=== PATIENT | female | born 1955 | race Caucasian/White ===

== ENCOUNTER 2016-07-22 10:06 | Inpatient (IN) | payer BC ==
[~2016-07-22 10:06] MED LIST: ACETAMINOPHEN 325 MG TAB PO ONE; CEFAZOLIN 2 GM/DEXTR 100 ML IV ONE; CHLORHEXIDINE GLUC HIBICLENS 118 ML BTL TP ONE; DEXAMETHASONE 4 MG/ML VIAL IVP ONE; FAMOTIDINE 20 MG TAB PO ONE; ROPI/epiNEPH/KETOROLAC JOINT COCKTAIL IU ONE; SKIN ADHESIVE (DERMABOND) 1 EACH TP ONE; TRANEXAMIC ACID 3,000 MG in NS 50 ML IRR ONE; TRANEXAMIC ACID 3,000 MG/50 ML BAG IRR ONE
[2016-07-22] MEDS ORDERED: DEXAMETHASONE 4 MG/ML VIAL ONE (10:25)
[2016-07-22] MEDS ORDERED: ACETAMINOPHEN 325 MG TAB ONE (10:25)
[2016-07-22] MEDS ORDERED: LIDOCAINE 1% 5 ML SDV ONE (10:25)
[2016-07-22] MEDS ORDERED: FAMOTIDINE 20 MG TAB ONE (10:25)
[2016-07-22] MEDS ORDERED: CEFAZOLIN 2 GM/DEXTROSE/100 ML BAG IV ONE (10:26)
[2016-07-22 11:15] LABS: % IMMATURE GRANULYOCYTES 0.2 % (0.0-1.1); ABSOLUTE IMMATURE GRANULOCYTES 0.01 10^3/uL (0.00-0.10); ADD DIFF? NO; ADD MORPH? NO; ADD SCAN? NO; ATYPICAL LYMPHOCYTE FLAG 0 (0-99); FRAGMENT RBC FLAG 0 (0-99); HEMATOCRIT 34.9 % (38.0-47.0); HEMOGLOBIN 11.5 g/dL (12.6-16.3); LEFT SHIFT FLG 0 (0-99); LIPEMIA HEMOLYSIS FLAG 80 (0-99); MEAN CELL HEMOGLOBIN 27.8 pg (27.9-34.1); MEAN CELL VOLUME 84.5 fL (81.5-99.8); MEAN PLATELET VOLUME 8.7 fL (8.7-11.7); PLATELET CLUMPS FLAG 0 (0-99); PLATELET COUNT 435 10^3/uL (150-400); RED BLOOD CELL COUNT 4.13 10^6/uL (4.18-5.33); RED CELL DISTRIBUTION WIDTH 13.9 % (11.5-15.2)
[2016-07-22] MEDS ORDERED: LIDOCAINE 1% 5 ML SDV ID PRN (11:15)
[2016-07-22] MEDS ORDERED: LR 1,000 ML IV ONE (11:15)
[2016-07-22] MEDS ORDERED: fentaNYL 100 MCG/2 ML INJ ONE (11:59)
[2016-07-22] MEDS ORDERED: MIDAZOLAM 2 MG/2 ML VIAL ONE (11:59)
[2016-07-22] MEDS ORDERED: PROPOFOL/EMULSION 500 MG/50 ML BOTTLE IV ONE ×2 (12:36→13:04)
--- NOTE | 2016-07-22 12:41 | POSTOPPROG ---
Addendum entered and electronically signed by Karla Boateng PA 07/22/16 12: 41: entered in mistake. wrong patient. Original Note: Post Op Note Date of Operation: 07/22/16 Surgeon: Karlene Boateng Waste Duster: karla boateng Anesthesiologist: dr. scott Anesthesia: Spinal, Other (Specify) (adductor canal block) Pre-op Diagnosis: left knee OA Post-op Diagnosis: same Indication: left knee pain due to OA that failed conservative measures Procedure: L medial partial knee arthroplasty Findings: severe medial knee OA Inf/Abcess present in the surg proc area at time of surgery?: No EBL: 50-100
[2016-07-22] MEDS ORDERED: diphenhydrAMINE 25 MG CAP PO PRN (12:50)
[2016-07-22] MEDS ORDERED: ONDANSETRON 4 MG/2 ML VIAL IVP PRN (12:50)
[2016-07-22] MEDS ORDERED: POLYETHYLENE GLYCOL 3350 17 GM PKT PO PRN (12:50)
[2016-07-22] MEDS ORDERED: TEMAZEPAM 15 MG CAP PO PRN (12:50)
[2016-07-22] MEDS ORDERED: PROMETHAZINE HCL 25 MG/ML VIAL IVP PRN (12:50)
[2016-07-22] MEDS ORDERED: LACTULOSE 20 GM/30 ML UDCUP PO PRN (12:50)
[2016-07-22] MEDS ORDERED: PHARMACY PAIN CONSULT 1 EA MISC PRN (12:50)
[2016-07-22] MEDS ORDERED: PROMETHAZINE HCL 25 MG SUPPR PR PRN (12:50)
[2016-07-22] MEDS ORDERED: BISACODYL 10 MG SUPP PR PRN (12:50)
[2016-07-22] MEDS ORDERED: DIPHENOXYLATE/ATROPINE LOMOTIL 1 TAB PO PRN (12:50)
[2016-07-22] MEDS ORDERED: MAGNESIUM HYDROXIDE 30 ML UDCUP PO PRN (12:50)
[2016-07-22] MEDS ORDERED: ONDANSETRON DISINTEGRATING 4 MG TAB PO PRN (12:50)
[2016-07-22] MEDS ORDERED: NON-FORMULARY NEW DRUG (Fluticasone Nasal [Flonase Nasal Spray] 2 SPRAYS) NASAL PRN ×2 (12:53→16:05)
[2016-07-22] MEDS ORDERED: LR 1,000 ML IV SCH (13:00)
--- NOTE | 2016-07-22 14:59 | POSTOPPROG ---
Post Op Note Date of Operation: 07/22/16 Surgeon: Karlene Boateng Interline Clerk: sonya boateng Anesthesiologist: dr. galindo Anesthesia: Spinal Pre-op Diagnosis: Right femur fracture, periprosthetic Post-op Diagnosis: same Indication: fracture and pain Procedure: placed cables around right femur Inf/Abcess present in the surg proc area at time of surgery?: No EBL: 50-100
--- NOTE | 2016-07-22 15:07 | DX ---
Intraoperative Fluoroscopy of the Right Hip and Portable AP Supine Pelvis Centered at the Hips at 2:29 p.m. Clinical History: 60-year-old female presenting for follow up after a right hip arthroplasty. Comparison study: AP pelvis, dated July 03, 2016. Findings: PORTABLE AP PELVIS: In the interim, there has been placement of cerclage wires along the inter- and s ubtrochanteric portions of the proximal right femur. The femoral and acetabular components remain manjit tomically aligned and stable in position on each side. There is normally expected postoperative air i n the soft tissues of the right hip. There is some subchondral degenerative sclerosis involving the s ymphysis pubis. Impression: Interim surgery with placement of cerclage wires adjacent to the proximal right intramedu llary femoral corrina near the inter- and subtrochanteric regions with anatomic alignment. INTRAOPERATIVE FLUOROSCOPY OF THE RIGHT HIP: Dr. Morales used 5.5 seconds of fluoroscopy time and a n exposure dose of 0.82 mGy, and 2 spot matrix intraoperative images were submitted identifying anato marcin alignment of a right hip prosthesis and placement of 2 cerclage wires along the inter- and subtro chanteric aspects of the proximal right femur. Impression: Intraoperative fluoroscopy of the right hip.
[2016-07-22] MEDS ORDERED: ceFAZolin 2 GM/DEXTROSE 100 ML IV SCH (16:00)
[2016-07-22] MEDS ORDERED: FLUTICASONE NASAL 120 SPRAYS/16 GM MDI EACHNARE PRN (16:06)
[2016-07-22] MEDS: CYCLOBENZAPRINE 10 MG TAB PO PRN ×2 (16:40→23:55)
[2016-07-22] MEDS: oxyCODONE IR 5 MG TAB PO PRN ×3 (16:49→23:55)
[2016-07-22] MEDS: ACETAMINOPHEN 325 MG TAB PO SCH ×2 (18:31→23:55)
[2016-07-22] MEDS: SENNOSIDES/DOCUSATE SODIUM TAB PO SCH (20:39)
[2016-07-22] MEDS: ceFAZolin 2 GM/DEXTROSE 100 ML IV SCH (20:39)
[2016-07-22] MEDS: FAMOTIDINE 20 MG TAB PO SCH (20:40)
[2016-07-22] MEDS: VENLAFAXINE XR 75 MG CAP PO SCH (20:41)
[2016-07-22] MEDS: ASPIRIN 325 MG TAB PO SCH (20:41)
[2016-07-22] MEDS ORDERED: NON-FORMULARY NEW DRUG (Cyclosporine 0.05% [Restasis Opht Drops(*)] 1 DROP) EACHEYE SCH (21:00)
[2016-07-22] MEDS: CYCLOSPORINE 0.05% 1 EACH BOX EACHEYE SCH (22:37)
[2016-07-23] MEDS: ceFAZolin 2 GM/DEXTROSE 100 ML IV SCH (05:18)
[2016-07-23] MEDS: oxyCODONE IR 5 MG TAB PO PRN ×4 (05:18→23:29)
[2016-07-23] MEDS: ACETAMINOPHEN 325 MG TAB PO SCH ×4 (05:18→23:29)
[2016-07-23 05:53] LABS: HEMATOCRIT 30.9 % (38.0-47.0); HEMOGLOBIN 10.1 g/dL (12.6-16.3)
[2016-07-23] MEDS: ASPIRIN 325 MG TAB PO SCH (09:04)
[2016-07-23] MEDS: FAMOTIDINE 20 MG TAB PO SCH ×2 (09:04→20:06)
[2016-07-23] MEDS: CYCLOSPORINE 0.05% 1 EACH BOX EACHEYE SCH ×2 (09:04→20:07)
[2016-07-23] MEDS: SENNOSIDES/DOCUSATE SODIUM TAB PO SCH ×2 (09:05→20:06)
[2016-07-23] MEDS: LIOTHYRONINE SODIUM 5 MCG TAB PO SCH (09:05)
[2016-07-23] MEDS: LEVOTHYROXINE 50 MCG TAB PO SCH (09:05)
[2016-07-23] MEDS: CYCLOBENZAPRINE 10 MG TAB PO PRN (09:14)
[2016-07-23] MEDS: metFORMIN HCL 500 MG TAB PO SCH ×2 (09:14→17:53)
--- NOTE | 2016-07-23 13:11 | SOAPPROG ---
SOAP Progress Note Assessment/Plan: Assessment: Vilma is doing well POD1 s/p R femur fracture in setting of R JOSUÉ 1. pain well controlled, improved compared to prior to surgery 2. VTE ppx: recommend aspirin 325 mg daily 3. Anemia: level expected initially postop. continue to monitor. 4. D/c planning: d/c to home most likely tomorrow. 5. weight bearing states: 50% weight bearing R leg Plan: 07/23/16 13:09 Subjective: Vilma is resting comfortably, denies SOB, chest pain and N/V. Objective: Vital Signs Temp Pulse Resp BP Pulse Ox 36.9 C 89 14 136/82 H 97 07/23/16 03:08 07/23/16 08:00 07/23/16 08:00 07/23/16 08:00 07/23/16 08:00 Laboratory Results 07/23/16 05:32 07/22/16 07/23/16 07/24/16 05:59 05:59 05:59 Intake Total 3850 Output Total 1050 800 Balance 2800 -800 RLE: incision dressing is clean and dry, NVI, +pf/df ICD10 Worksheet Patient Problems: Problems Problem Status Diagnosed Primary localized osteoarthritis of right hip Acute
[2016-07-23] MEDS: VENLAFAXINE XR 75 MG CAP PO SCH (20:05)
[2016-07-23 23:18] VITALS: RESP 16
[2016-07-24] MEDS: ACETAMINOPHEN 325 MG TAB PO SCH ×2 (05:36→12:11)
[2016-07-24] MEDS: oxyCODONE IR 5 MG TAB PO PRN ×2 (05:36→12:15)
[2016-07-24 06:27] LABS: HEMATOCRIT 33.2 % (38.0-47.0); HEMOGLOBIN 10.2 g/dL (12.6-16.3)
[2016-07-24 08:20] VITALS: BP 127/75; PULSE 82; TEMP 98.5; O2SAT 94
[2016-07-24] MEDS: FAMOTIDINE 20 MG TAB PO SCH (09:34)
[2016-07-24] MEDS: LEVOTHYROXINE 50 MCG TAB PO SCH (09:34)
[2016-07-24] MEDS: CYCLOSPORINE 0.05% 1 EACH BOX EACHEYE SCH (09:34)
[2016-07-24] MEDS: metFORMIN HCL 500 MG TAB PO SCH (09:34)
[2016-07-24] MEDS: ASPIRIN 325 MG TAB PO SCH (09:34)
[2016-07-24] MEDS: LIOTHYRONINE SODIUM 5 MCG TAB PO SCH (09:34)
[2016-07-24] MEDS: SENNOSIDES/DOCUSATE SODIUM TAB PO SCH (09:34)
--- NOTE | 2016-07-24 12:11 | SOAPPROG ---
SOLISA Progress Note Assessment/Plan: Assessment: Gerson is doing well POD2 s/p R femur fracture in setting of R JOSUÉ 1. pain well controlled, improved compared to prior to surgery 2. VTE ppx: recommend aspirin 325 mg daily 3. Anemia: level expected initially postop. continue to monitor. 4. D/c planning: d/c to home most likely today. 5. weight bearing states: 50% weight bearing R leg 6. knee pain: continue celebrex and icing as needed. should improve with time. Plan: 07/23/16 13:09 07/24/16 12:10 Subjective: gerson is doing well today, denies SOB, chest pain and N/V. c/o right knee pain. Objective: Vital Signs Temp Pulse Resp BP Pulse Ox 36.9 C 82 16 127/75 H 94 07/24/16 08:00 07/24/16 08:00 07/24/16 08:00 07/24/16 08:00 07/24/16 08:00 Laboratory Results 07/24/16 05:42 07/23/16 07/24/16 07/25/16 05:59 05:59 05:59 Intake Total 3850 550 Output Total 1050 1500 Balance 2800 -950 RLE incision dressing is clean and dry, ICD10 Worksheet Patient Problems: Problems Problem Status Diagnosed Mindy-prosthetic femoral shaft fracture Acute Primary localized osteoarthritis of right hip Acute
--- NOTE | 2016-07-25 13:42 | GOP ---
[f rep st] OPERATIVE REPORT DATE OF OPERATION: 07/22/2016 SURGEON: Davina Morales MD MEDICAL RECORD SPECIALIST: Karla Morales PA-C ANESTHESIA: Spinal. PREOPERATIVE DIAGNOSIS: Right periprosthetic femur fracture. POSTOPERATIVE DIAGNOSIS: Right periprosthetic femur fracture. PROCEDURE PERFORMED: Right singlel component total hip revision. FINDINGS: ESTIMATED BLOOD LOSS: 100 cc. INDICATIONS: The patient is a 60-year-old female who is approximately three weeks out from a total hip replacement. With attempting to climb her stairs using her recently operated on leg, she heard a crack and had inability to bear weight. Was seen in the clinic and was determined to have a nondisplaced right proximal femur fracture. Risks and benefits of the surgery were discussed with the patient regarding operative and nonoperative intervention. Decision was made to proceed with operative intervention. DESCRIPTION OF PROCEDURE: Patient was identified in the preoperative holding area. Her lower extremity was marked. She was then brought back to the operating room. After induction of anesthesia, the patient was placed onto the Arch table. After being prepped and draped, a time out was taken to confirm patient, laterality, procedure, allergies, antibiotic status and implant capability. We started with an incision through her old Albertina incision, moving down through the [place]ak interval, with the TFL between the rectus and the adductors and identified the previous surgical site. Any fluid was removed. I identified the fascia clint of the femur. A fluoroscopic image was taken which confirmed there had been no displacement of the implants. The proximal femur was thoroughly palpated. No displaced fracture fragments were able to be identified. Decision was made to place cerclage cables in situ. One cable was placed proximal to the lesser trochanter. A second cable was placed inferior to the lesser trochanter. These were confirmed on fluoroscopy. We then copiously irrigated. The incision was closed in layers. Patient had a sterile dressing placed. She was then awakened and brought to the PACU with a well perfused limb. The plan is to have the patient at 50% weightbearing. She will be admitted to the Orthopedic Service. /[id number]/MODL MTDD
== END 2016-07-24 14:11 | disposition home or self-care (01) | DRG 482 ==
LOC: F3N 10:06
PROVIDERS: ADMIT Orthopaedic Surgery; ATTEND Orthopaedic Surgery
PROC: 0QH604Z Insertion of Internal Fixation Device into Right Upper Femur, Open Approach (ICD-10-PCS; principal; 2016-07-22 12:15)
DX: M97.01XA Periprosthetic fracture around internal prosthetic right hip joint, initial encounter (principal); Z96.641 Presence of right artificial hip joint; X58.XXXA Exposure to other specified factors, initial encounter
CPT/HCPCS: 97116-GP; 97161-GP; 97165-GO; 97535-GO; C1713; J0171; J0690; J1100; J1885; J2250; J2704; J2795; J3010

== ENCOUNTER → 2016-12-08 | Outpatient (CLI) | payer BC | LOC: BMCIMAGING 09:15 | PROVIDERS: ATTEND Podiatrist Foot & Ankle Surgery | DX: M19.071 Primary osteoarthritis, right ankle and foot (principal) ==

== ENCOUNTER → 2017-04-09 | Outpatient (CLI) | payer BC | LOC: CIMAGING 08:15 | PROVIDERS: ATTEND Nurse Practitioner Adult Health | DX: Z12.31 Encounter for screening mammogram for malignant neoplasm of breast (principal) | CPT/HCPCS: G0202 ==

== ENCOUNTER → 2017-12-07 | Outpatient (CLI) | payer BC | LOC: BMCIMAGING 11:23 | PROVIDERS: ATTEND Podiatrist Foot & Ankle Surgery | DX: M20.12 Hallux valgus (acquired), left foot (principal); M20.11 Hallux valgus (acquired), right foot; M19.072 Primary osteoarthritis, left ankle and foot; M19.071 Primary osteoarthritis, right ankle and foot; M21.42 Flat foot [pes planus] (acquired), left foot; M21.41 Flat foot [pes planus] (acquired), right foot; M77.32 Calcaneal spur, left foot; M77.31 Calcaneal spur, right foot ==

== ENCOUNTER → 2018-04-16 | Outpatient (CLI) | payer BC | LOC: FIMAGING 09:22 | PROVIDERS: ATTEND Nurse Practitioner Adult Health | DX: Z12.31 Encounter for screening mammogram for malignant neoplasm of breast (principal) ==